=== PATIENT | female | born 1960 | race Hispanic/Latino ===

== ENCOUNTER 2018-03-16 12:21 | Observation (INO) | payer BC ==
[~2018-03-16] VITALS: Ht 162.6 cm; Wt 87.2 kg
[~2018-03-16 12:21] MED LIST: ATORVASTATIN CA10 MG PO; JANUMET 50-5001 EACH PO; LEVAQUIN750 MG PO; LOSARTAN-HCTZ1 EACH PO; OMEGA-31000 MG; PROAIR HFA INH8.5 GM; SYMBICORT 16010.2 GM; VITALETS; [UNRECOGNIZED DRUG - OTHER]
--- OUTSIDE RECORDS SUMMARY | 2018-03-16 12:24 | XMS REPORT ---
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 Allergies, Adverse Reactions, Alerts This patient has no known allergies or adverse reactions. Medications This patient has no known medications. Results Test Description Test Time Test Comments Text Results Atomic Results Result Comments MRI KNEE JNT RT WO CLINICAL INDICATION: S83.91XA Sprain of unspecified site of right knee, initial encounterMODALITY: Avanto 1.5 Sharlene 18 channel MRITECHNIQUE: Multiplanar multisequence MRI of the right knee was performed .IMPRESSION:1. Posterior horn of medial meniscus tear.2. 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 Small joint effusion.4. Trace fluid localizing to the pes anserine bursa.FINDINGS:COMPARISON: none MENISCI: Horizontal oblique tear involves mid posterior horn of medial meniscus. The lateral meniscus appears intact.CRUCIATE LIGAMENTS: Anterior and posterior cruciate ligaments are intact.COLLATERAL LIGAMENTS: Medial and lateral collateral ligaments are intact.OSSEOUS STRUCTURES AND CARTILAGINOUS SURFACES: No fractures or destructive osseous lesions are seen. Grade 2 chondromalacia involves weightbearing surfaces in the medial compartment. Hyaline cartilage in the lateral compartment appears unremarkable.PATELLOFEMORAL COMPARTMENT: Patellofemoral alignment is normal. Small partial thickness chondral fissure involves the lateral patellar facet. Subtle grade 2 chondromalacia involves the mid trochlear groove.MISCELLANEOUS FINDINGS: Small joint effusion is present. Trace fluid is present in the gastrocnemius - semimembranosus bursa. Trace fluid localizes to the pes anserine bursa.
[2018-03-16] MEDS ORDERED: ASPIRIN 81 MG CHEW TAB PO ONE (12:45)
[2018-03-16 13:15] LABS: BASOPHILS % 0.3 % (0.0-1.0); EOSINOPHILS # (AUTO) 0.5 (0.0-0.4); EOSINOPHILS % 5.1 % (0.0-6.0); HEMATOCRIT 44.2 % (34.2-44.1); HEMOGLOBIN 14.8 g/dL (12.0-16.0); LYMPHOCYTES # (AUTO) 2.5 (1.0-3.2); LYMPHOCYTES % 28.2 % (18.0-39.1); MEAN CORPUSCULAR HEMOGLOBIN 27.1 pg (28-32); MEAN CORPUSCULAR HGB CONC 33.5 g/dL (31-35); MEAN CORPUSCULAR VOLUME 80.8 fL (81-99); MONOCYTES # (AUTO) 0.7 (0.2-0.8); MONOCYTES % 7.6 % (4.4-11.3); NEUTROPHILS # (AUTO) 5.2 (2.1-6.9); NEUTROPHILS % 58.5 % (38.7-80.0); PLATELET COUNT 322 x10e3/uL (140-360); RED BLOOD COUNT 5.47 x10e6/uL (3.6-5.1); RED CELL DISTRIBUTION WIDTH 14.7 % (11.7-14.4)
[2018-03-16 13:17] LABS: INR 0.91; PROTHROMBIN TIME 13.1 seconds (11.9-14.5)
[2018-03-16 13:18] LABS: PARTIAL THROMBOPLASTIN TIME 27.8 seconds (23.8-35.5)
[2018-03-16 13:28] LABS: ALANINE AMINOTRANSFERASE 44 IU/L (0-55); ALBUMIN 3.8 g/dL (3.5-5.0); ALBUMIN/GLOBULIN RATIO 1.1 (0.8-2.0); ALKALINE PHOSPHATASE 88 IU/L (40-150); ANION GAP 13.6 mmol/L (8-16); BLOOD UREA NITROGEN 13 mg/dL (7-26); BUN/CREATININE RATIO 17 (6-25); CALCIUM 9.6 mg/dL (8.4-10.2); CARBON DIOXIDE 23 mmol/L (22-29); CHLORIDE 107 mmol/L (98-107); CREATINE KINASE 66 IU/L (29-168); CREATININE, SERUM 0.75 mg/dL (0.57-1.11); EST GLOMERULAR FILTRATION RATE > 60 ML/MIN (60-); GLUCOSE 144 mg/dL (74-118); MAGNESIUM 2.2 MG/DL (1.3-2.1); POTASSIUM 3.6 mmol/L (3.5-5.1); SODIUM 140 mmol/L (136-145)
--- NOTE | 2018-03-16 13:29 | Diagnostic Imaging Report ---
EXAMINATION: CHEST SINGLE (PORTABLE) COMPARISON: None INDICATION: Chest pain DISCUSSION: Frontal view of the chest obtained at 1258 hours. HEART AND MEDIASTINUM: The heart is top normal in size but normal in morphology LINES: None. LUNGS: Lung volumes are mildly diminished, likely due to portable technique. No pneumonia, interstitial thickening, or pulmonary edema. PLEURA: No pleural effusion or pneumothorax. BONES AND SOFT TISSUES: No focal osseous lesion. The soft tissues are normal. IMPRESSION: No acute cardiopulmonary disease. Signed by: Dr. Jaja Aguirre MD on 03/16/2018 1:26 PM
[2018-03-16 13:53] LABS: CLARITY,URINE CLEAR (CLEAR); COLOR,URINE YELLOW (YELLOW); LEUKOCYTE ESTERASE ,URINE NEGATIVE (NEGATIVE); NITRITE,URINE NEGATIVE (NEGATIVE); PROTEIN,URINE DIPSTICK NEGATIVE (NEGATIVE)
[2018-03-16 13:54] LABS: BILIRUBIN,URINE NEGATIVE (NEGATIVE); KETONES,URINE NEGATIVE (NEGATIVE); URINE UROBILINOGEN 0.2 mg/dL (0.2 - 1)
[2018-03-16 13:59] LABS: BACTERIA,URINE FEW /HPF; EPITHELIAL CELLS,URINE RARE /LPF; RBC,URINE 0-5 /HPF (0-5); YEAST,URINE FEW
[2018-03-16] MEDS ORDERED: NITROGLYCERIN 0.4 MG SUBL SL PRN (14:30)
[2018-03-16] MEDS ORDERED: ONDANSETRON HCL INJ 2 MG/ML VIAL IV PRN (14:30)
[2018-03-16] MEDS ORDERED: MORPHINE SULFATE 2 MG/ML SYR IV PRN (14:30)
[2018-03-16] MEDS: FAMOTIDINE 20 MG/2 ML VIAL IV SCH (15:08)
[2018-03-16] MEDS ORDERED: DEXTROSE 50% SYRINGE 50 ML IV PRN (17:00)
[2018-03-16] MEDS ORDERED: JARDIANCE PO (17:12)
[2018-03-16] MEDS ORDERED: SINGULAIR10 MG (17:12)
[2018-03-16 17:45] VITALS: BP 139/67
[2018-03-16 17:57] VITALS: BP 139/67
[2018-03-16 18:05] VITALS: BP 139/67
[2018-03-16 21:33] LABS: CREATINE KINASE 56 IU/L (29-168)
[2018-03-16] MEDS: INSULIN LISPRO 100 UNIT/1 ML 3ML VIAL SQ SCH (21:40)
[2018-03-16 22:13] VITALS: BP 130/63
[2018-03-16 22:14] VITALS: BP 130/63
[2018-03-17] VITALS (9 sets, daily range): BP systolic 118–133; BP diastolic 57–74
[2018-03-17] MEDS: FAMOTIDINE 20 MG/2 ML VIAL IV SCH (03:10)
[2018-03-17 05:55] LABS: BASOPHILS % 0.5 % (0.0-1.0); EOSINOPHILS # (AUTO) 0.6 (0.0-0.4); EOSINOPHILS % 6.4 % (0.0-6.0); HEMATOCRIT 41.4 % (34.2-44.1); HEMOGLOBIN 13.6 g/dL (12.0-16.0); LYMPHOCYTES # (AUTO) 3.2 (1.0-3.2); LYMPHOCYTES % 37.5 % (18.0-39.1); MEAN CORPUSCULAR HEMOGLOBIN 27.1 pg (28-32); MEAN CORPUSCULAR HGB CONC 32.9 g/dL (31-35); MEAN CORPUSCULAR VOLUME 82.6 fL (81-99); MONOCYTES # (AUTO) 0.7 (0.2-0.8); MONOCYTES % 7.9 % (4.4-11.3); NEUTROPHILS # (AUTO) 4.1 (2.1-6.9); NEUTROPHILS % 47.5 % (38.7-80.0); PLATELET COUNT 300 x10e3/uL (140-360); RED BLOOD COUNT 5.01 x10e6/uL (3.6-5.1); RED CELL DISTRIBUTION WIDTH 14.8 % (11.7-14.4)
[2018-03-17 06:04] LABS: ALANINE AMINOTRANSFERASE 37 IU/L (0-55); ALBUMIN 3.4 g/dL (3.5-5.0); ALBUMIN/GLOBULIN RATIO 1.1 (0.8-2.0); ALKALINE PHOSPHATASE 77 IU/L (40-150); ANION GAP 13.7 mmol/L (8-16); BLOOD UREA NITROGEN 15 mg/dL (7-26); BUN/CREATININE RATIO 19 (6-25); CALCIUM 9.3 mg/dL (8.4-10.2); CARBON DIOXIDE 24 mmol/L (22-29); CHLORIDE 105 mmol/L (98-107); CHOL/HDL RATIO 4.6 (3.0-3.6); CHOLESTEROL 133 MD/DL (0-199); CREATININE, SERUM 0.78 mg/dL (0.57-1.11); EST GLOMERULAR FILTRATION RATE > 60 ML/MIN (60-); GLUCOSE 125 mg/dL (74-118); HDL CHOLESTEROL 29 MG/DL (40-60); LDL CHOLESTEROL 73 MG/DL (60-130); POTASSIUM 3.7 mmol/L (3.5-5.1); SODIUM 139 mmol/L (136-145); TRIGLYCERIDES 154 MG/DL (0-149)
[2018-03-17 06:33] LABS: CREATINE KINASE 54 IU/L (29-168)
[2018-03-17] MEDS: INSULIN LISPRO 100 UNIT/1 ML 3ML VIAL SQ SCH ×4 (07:30→20:47)
[2018-03-17] MEDS: ASPIRIN 81 MG ENTERIC COATED PO SCH (09:26)
[2018-03-17] MEDS: METOPROLOL TARTRATE 25 MG TAB PO SCH ×2 (09:26→16:54)
[2018-03-17] MEDS: FAMOTIDINE 20 MG TAB PO SCH ×2 (09:26→16:54)
--- NOTE | 2018-03-17 09:54 | History and Physical ---
PRIMARY CARE PHYSICIAN: Dr. Mann CHIEF COMPLAINT: Chest pain. HISTORY OF PRESENT ILLNESS: This is 57-year-old woman with a history of hypertension and diabetes mellitus type 2, now developing left-sided chest pain, described as tingling, radiating down the left arm. Had associated shortness of breath and dizziness. The last stress test was 3 years ago. No stents were placed at that time during the left heart catheterization. Admitted for further evaluation and management. PAST MEDICAL HISTORY: Hypertension, asthma/COPD, diabetes mellitus type 2, stroke. PAST SURGICAL HISTORY: Hysterectomy. ALLERGIES: PER ELECTRONIC MEDICAL RECORD. FAMILY/SOCIAL HISTORY: Patient is . She has 2 children. No alcohol, illicits, or cigarettes. MEDICATIONS: Per electronic medical record. REVIEW OF SYSTEMS: Denies any vision changes. Denies any headache. Denies any leg pain, back pain, nausea, vomiting, or diarrhea. PHYSICAL EXAMINATION: VITAL SIGNS: Have been reviewed. GENERAL APPEARANCE: Tired-appearing woman resting in bed. HEENT: Anicteric. Pupils respond to light. No oral lesions. CARDIOVASCULAR: Normal S1 and S2. LUNGS: Moderate breath sounds. ABDOMEN: Soft, nontender, nondistended. EXTREMITIES: No edema or calf tenderness. NEUROLOGICAL: Alert and oriented x3. Moving all extremities. SKIN: Dry. PSYCHIATRIC: Normal affect. MUSCULOSKELETAL: Posterior cervical region is mildly tender. In left arm, there is no left arm tenderness on palpation. LABS: Reviewed. MEDICATIONS: Reviewed. ASSESSMENT: A 57-year-old woman. 1. Left-sided chest pain. 2. Left arm paresthesia. 3. Obesity. Body mass index 33.3. 4. Diabetes mellitus type 2. 5. Hyperlipidemia. 6. Hypertension. 7. Acute bronchitis. 8. Congestive heart failure, type unknown. PLAN: 1. Obtain CT scan of the C-spine to evaluate for neurologic for the left arm paresthesia and tingling. 2. Rule out acute coronary syndrome. 3. Follow up lipid panel and hemoglobin A1c. 4. Use beta briana and Pepcid. 5. Prophylaxis with Lovenox and Pepcid. 6. Disposition: Follow up CT scan of the cervical spine. Follow up other labs. Job#: [id number]
--- NOTE | 2018-03-17 10:10 | Diagnostic Imaging Report ---
EXAMINATION: CT of the cervical spine HISTORY: Neck pain since the day before, left upper extremity paresthesias, chest pain. COMPARISON: None available TECHNIQUE: Multidetector helical axial images were obtained without contrast from the foramen magnum to T1. The images were reconstructed using bone and soft tissue algorithms and were viewed in axial, sagittal and coronal planes. Dose modulation, iterative reconstruction, and/or weight based adjustment of the mA/kV was utilized to reduce the radiation dose to as low as reasonably achievable. FINDINGS: Alignment: Normal alignment and lordosis Soft tissues: Normal Vertebrae: Normal height and density. No acute fracture, infection or neoplasm Degenerative changes: C1-C2: Normal C2-C3: Normal C3-C4: Mild facet arthrosis on the right without stenoses C4-C5: Tiny disc osteophyte and uncovertebral processes without significant stenoses C5-C6: Asymmetric to the right disc osteophyte, uncovertebral and facet arthrosis. Moderate right and mild left foraminal stenoses. C6-C7: Normal C7-T1: Normal IMPRESSION: 1. No acute cervical spine abnormalities. 2. Moderate right and mild left degenerative foraminal stenosis at C5-C6. Otherwise no significant degenerative changes, spinal canal or foraminal stenoses. Signed by: Dr. Radha Tavera M.D. on 03/17/2018 10:07 AM
[2018-03-17] MEDS: ENOXAPARIN SOD INJ 40 MG/0.4 ML SYR SC SCH (16:54)
[2018-03-17] MEDS: PRAVASTATIN 20 MG TAB PO SCH (20:44)
[2018-03-18] VITALS (9 sets, daily range): BP systolic 107–132; BP diastolic 56–84
[2018-03-18] MEDS ORDERED: PRAVASTATIN SOD20 MG PO (06:31)
[2018-03-18] MEDS ORDERED: LOPRESSOR25 MG PO (06:31)
[2018-03-18] MEDS ORDERED: ASPIRIN EC81 MG PO (06:31)
[2018-03-18] MEDS: ASPIRIN 81 MG ENTERIC COATED PO SCH (08:25)
[2018-03-18] MEDS: FAMOTIDINE 20 MG TAB PO SCH ×2 (08:25→17:59)
[2018-03-18] MEDS: INSULIN LISPRO 100 UNIT/1 ML 3ML VIAL SQ SCH ×4 (08:25→20:32)
[2018-03-18] MEDS: METOPROLOL TARTRATE 25 MG TAB PO SCH ×2 (08:25→17:59)
[2018-03-18] MEDS: ENOXAPARIN SOD INJ 40 MG/0.4 ML SYR SC SCH (18:00)
[2018-03-18] MEDS: PRAVASTATIN 20 MG TAB PO SCH (20:31)
--- NOTE | 2018-03-18 22:29 | Consultation ---
DATE OF CONSULTATION: March 18, 2018 CARDIOLOGY CONSULTATION REFERRING PHYSICIAN: Dr. Isaiah Powell REASON FOR CONSULTATION: Chest pain. HISTORY OF PRESENT ILLNESS: Ms. Garcia is a pleasant 57-year-old woman with diabetes mellitus type 2, hypertension, dyslipidemia, obesity, and asthma/COPD, who presented to [facility] for complaints of chest discomfort associated with dyspnea and dizziness. Discomfort radiated to left upper extremity and neck, worse with positional changes as well as moving of the left upper extremity. However, has noticed some dyspnea on exertion to moderate activity. Has not had any recent cardiac evaluation. Initial EKG reveals normal sinus rhythm with nonspecific repolarization abnormalities. REVIEW OF SYSTEMS: Twelve-system review negative except for as noted above. ALLERGIES: TO PENICILLIN. PAST MEDICAL HISTORY: As per HPI. SURGICAL HISTORY: Hysterectomy. SOCIAL HISTORY: Denies smoking, alcohol, or drugs. FAMILY HISTORY: Noncontributory. PHYSICAL EXAMINATION: VITAL SIGNS: Temperature 98.9, heart rate 77, respiratory rate 21, blood pressure 130/84, O2 sat 94% on room air. GENERAL: In no acute distress, alert. NECK: No JVD. CHEST: Clear to auscultation. CARDIOVASCULAR: Regular rate and rhythm. Normal S1 and S2. No S3, no S4. No murmurs or rubs. ABDOMEN: Soft, nontender, nondistended. EXTREMITIES: No cyanosis, clubbing, or edema. CARDIOVASCULAR MEDICATIONS: Reviewed, on metoprolol tartrate 12.5 mg b.i.d., aspirin 81 mg daily, mg subcutaneous daily. STUDIES: Reviewed. White blood cells 8.6, hemoglobin 13.6, platelets 300,000. INR 0.9. Glucose 144. Serial cardiac enzymes negative x3. LDL 73, HDL 29, triglycerides 154. A1c 6.9. ASSESSMENT: 1. Atypical chest pain. Differential diagnosis includes unstable angina versus musculoskeletal etiology. 2. Diabetes mellitus. 3. Hypertension. 4. Dyslipidemia. 5. Obesity. 6. Asthma. RECOMMENDATIONS: Discussed with patient extensively given risk factors and atypical presentation with some radiation to upper extremity and associated symptoms, I do feel proceeding with stress test is reasonable and advisable. We have discussed scheduling this, patient in agreement. Will continue current cardiovascular medications. Further recommendations to follow. I thank Dr. Powell for the opportunity to participate in the care of Ms. Garcia. Job#: [id number]
[2018-03-19] VITALS (7 sets, daily range): BP systolic 116–132; BP diastolic 61–79
[2018-03-19] MEDS: FAMOTIDINE 20 MG TAB PO SCH ×2 (07:30→17:34)
[2018-03-19] MEDS: INSULIN LISPRO 100 UNIT/1 ML 3ML VIAL SQ SCH ×4 (07:30→20:47)
[2018-03-19] MEDS: METOPROLOL TARTRATE 25 MG TAB PO SCH ×2 (07:32→17:34)
[2018-03-19] MEDS: ASPIRIN 81 MG ENTERIC COATED PO SCH (07:32)
[2018-03-19] MEDS ORDERED: REGADENOSON 0.4 MG/5 ML SYR IV ONE (08:41)
--- NOTE | 2018-03-19 11:30 | Progress Note ---
DATE: March 19, 2018 CARDIOLOGY PROGRESS NOTE SUBJECTIVE: No chest pain. Today's stress test ongoing this morning, report to follow. OBJECTIVE VITAL SIGNS: Temperature 97.9, heart rate 75, blood pressure 117/67, respiratory rate 19, O2 sat 95%. GENERAL: In no acute distress, alert. NECK: No JVD. CHEST: Clear to auscultation. CARDIOVASCULAR: Regular rate and rhythm. Normal S1 and S2. No S3, no S4. No murmurs or rubs. ABDOMEN: Soft, nontender, and nondistended. EXTREMITIES: No cyanosis, clubbing or edema. CARDIOVASCULAR MEDICATIONS: Metoprolol tartrate 12.5 mg b.i.d., Prilosec 20 mg at bedtime, Lovenox 40 mg subcu daily. LABORATORY STUDIES: Sodium 139, potassium 3.7, creatinine 0.7. Hemoglobin 13.6. INR 0.9. Normal . ASSESSMENT 1. Chest pain, atypical. 2. Obesity with a body mass index of 33. 3. Hypertension. 4. Diabetes mellitus. 5. Dyslipidemia. RECOMMENDATIONS: Continue current cardiovascular medications. Stress test ongoing this morning, report to follow. Preserved left ventricular systolic function. Ordered an echocardiogram. No significant valvular abnormalities noted. If stress is reassuring, we will give her discharge with outpatient follow up in 4 to 6 weeks. Job#: [id number] ALEISHA
[2018-03-19] MEDS: ENOXAPARIN SOD INJ 40 MG/0.4 ML SYR SC SCH (17:34)
[2018-03-19] MEDS: PRAVASTATIN 20 MG TAB PO SCH (20:44)
--- NOTE | 2018-03-19 22:35 | Cardiology Report ---
DATE OF STUDY: March 19, 2018 STRESS TEST INTERPRETING AND SUPERVISING PHYSICIAN: Dr. Gregory Dos Santos, interventional cardiology. PROCEDURE INDICATION: Chest pain. INTERPRETATION: At rest, heart rate was 78, blood pressure 108/75. Resting EKG, normal sinus rhythm with nonspecific repolarization abnormalities. After Lexiscan was administered, heart rate deann to peak of 116 beats per minute, blood pressure increased to 175/76. There were no significant ST changes or arrhythmias throughout stress or recovery. Myocardial perfusion reveals small-sized mild severity apical rest perfusion defect that partially improves on stress images and during systole, and gated images demonstrate preserved left ventricular systolic function, normal regional wall motion, left ventricular ejection fraction of 64%. CONCLUSION: 1. Normal hemodynamic response to Lexiscan stress. 2. Normal electrocardiographic response to Lexiscan stress. 3. Myocardial perfusion demonstrating a small apical attenuation artifact versus less likely nontransmural scar. 4. Preserved left ventricular systolic function with left ventricular ejection fraction of 64%. Job#: [id number]
[2018-03-20 02:49] VITALS: BP 129/62
[2018-03-20] MEDS ORDERED: ZOFRAN ODT4 MG PO (04:05)
[2018-03-20 05:00] VITALS: BP 115/72
[2018-03-20 08:00] VITALS: BP 116/69
[2018-03-20] MEDS: ASPIRIN 81 MG ENTERIC COATED PO SCH (08:14)
[2018-03-20] MEDS: INSULIN LISPRO 100 UNIT/1 ML 3ML VIAL SQ SCH (08:14)
[2018-03-20] MEDS: FAMOTIDINE 20 MG TAB PO SCH (08:14)
[2018-03-20] MEDS: METOPROLOL TARTRATE 25 MG TAB PO SCH (08:15)
[2018-03-20 08:29] VITALS: BP 116/69
--- NOTE | 2018-03-20 11:06 | Progress Note ---
DATE: March 20, 2018 CARDIOLOGY PROGRESS NOTE SUBJECTIVE: No complaints. OBJECTIVE VITAL SIGNS: Temperature 97.1, heart rate 78, respiratory rate is 14, blood pressure 116/69, O2 sat 96% on room air. GENERAL: In no acute distress, alert. NECK: No JVD. CHEST: Clear to auscultation. CARDIOVASCULAR: Regular rate and rhythm. Normal S1 and S2. No S3, no S4. ABDOMEN: Soft, nontender, nondistended. EXTREMITIES: No edema. CARDIOVASCULAR MEDICATIONS: Metoprolol tartrate 12.5 mg b.i.d., aspirin 81 mg daily, Lovenox 40 mg subcu daily. STUDIES: Reviewed. White blood cells 8.6, hemoglobin 13.6, platelets 300. Glucose 144. TELEMETRY: In sinus rhythm. ASSESSMENT 1. Atypical chest pain with reassuring stress test result nearly apical attenuation artifact versus less likely nontransmural scar. 2. Preserved left ventricular systolic function. 3. No significant valvar abnormality on echocardiogram and telemetry with normal sinus rhythm. RECOMMENDATIONS: Recommend optimization of blood pressure, risk factor, and close outpatient followup. Advised patient to followup in 4 weeks post-discharge. Job#: [id number] LOVE
== END 2018-03-20 11:06 | disposition home or self-care (01) ==
LOC: ER 12:21 → ERHOLD 15:05 → IMCU 17:40
PROVIDERS: ADMIT Internal Medicine; ATTEND Internal Medicine
DX: R07.89 Other chest pain (principal); R94.31 Abnormal electrocardiogram [ECG] [EKG]; I10 Essential (primary) hypertension; E11.9 Type 2 diabetes mellitus without complications; E78.5 Hyperlipidemia, unspecified; D64.9 Anemia, unspecified; Z87.891 Personal history of nicotine dependence; Z83.3 Family history of diabetes mellitus; Z82.49 Family history of ischemic heart disease and other diseases of the circulatory system; E83.41 Hypermagnesemia; E66.9 Obesity, unspecified; Z68.33 Body mass index [BMI] 33.0-33.9, adult; I50.9 Heart failure, unspecified; J20.9 Acute bronchitis, unspecified; R20.2 Paresthesia of skin; Z88.0 Allergy status to penicillin
CPT/HCPCS: 36415 ×5; 71045; 72125; 78452; 80053 ×2; 80061; 81001; 82550 ×2; 82553 ×2; 82948 ×5; 83036; 83735; 84484 ×2; 85025 ×2; 85610; 85730; 93005; 93017; 93306; 96372 ×2; 99284; A9502; G0378 ×5; J1650 ×3; J2405; J2785

== ENCOUNTER 2018-04-30 16:11 | Emergency (ER) | payer BC ==
[~2018-04-30] VITALS: Ht 162.6 cm; Wt 83.5 kg
[~2018-04-30 16:11] MED LIST changes: +ASPIRIN EC81 MG PO; +JARDIANCE PO; +LOPRESSOR25 MG PO; +PRAVASTATIN SOD20 MG PO; +SINGULAIR10 MG; +ZOFRAN ODT4 MG PO
[2018-04-30] MEDS ORDERED: ONDANSETRON HCL INJ 2 MG/ML VIAL IV STA (16:40)
[2018-04-30] MEDS ORDERED: MORPHINE SULFATE 2 MG/ML SYR IV STA (16:40)
[2018-04-30] MEDS ORDERED: SODIUM CHLORIDE 0.9% 1000ML 1,000 ML IV SCH (16:45)
[2018-04-30] MEDS ORDERED: MORPHINE SULFATE INJ 4 MG/ML INJ IV PRN (17:00)
[2018-04-30 17:12] LABS: BASOPHILS % 0.3 % (0.0-1.0); EOSINOPHILS # (AUTO) 0.1 (0.0-0.4); HEMATOCRIT 45.2 % (34.2-44.1); HEMOGLOBIN 14.8 g/dL (12.0-16.0); LYMPHOCYTES # (AUTO) 1.5 (1.0-3.2); MEAN CORPUSCULAR HEMOGLOBIN 26.6 pg (28-32); MEAN CORPUSCULAR HGB CONC 32.7 g/dL (31-35); MEAN CORPUSCULAR VOLUME 81.1 fL (81-99); MONOCYTES # (AUTO) 0.5 (0.2-0.8); NEUTROPHILS # (AUTO) 6.7 (2.1-6.9); NEUTROPHILS % 74.9 % (38.7-80.0); PLATELET COUNT 342 x10e3/uL (140-360); RED BLOOD COUNT 5.57 x10e6/uL (3.6-5.1); RED CELL DISTRIBUTION WIDTH 14.7 % (11.7-14.4)
[2018-04-30 17:52] LABS: CLARITY,URINE CLEAR (CLEAR); COLOR,URINE YELLOW (YELLOW); LEUKOCYTE ESTERASE ,URINE NEGATIVE (NEGATIVE); NITRITE,URINE NEGATIVE (NEGATIVE); PROTEIN,URINE DIPSTICK NEGATIVE (NEGATIVE)
[2018-04-30 17:53] LABS: BILIRUBIN,URINE NEGATIVE (NEGATIVE); KETONES,URINE 1+ (NEGATIVE); URINE UROBILINOGEN 0.2 mg/dL (0.2 - 1)
[2018-04-30 17:57] LABS: WBC,URINE (MAN) 0-5 /HPF (0-5)
[2018-04-30 17:58] LABS: BACTERIA,URINE MODERATE /HPF; EPITHELIAL CELLS,URINE MODERATE /LPF
--- NOTE | 2018-04-30 18:30 | Diagnostic Imaging Report ---
EXAM: Right Upper Quadrant Ultrasound INDICATION: ^allyssa COMPARISON: CT abdomen and pelvis 11/14/2015 TECHNIQUE: Transverse and longitudinal images of the right upper abdomen were obtained. FINDINGS: Liver: Size: 15.8 cm in the right midclavicular line, normal Appearance: Mildly increased echogenicity, smooth contour Mass: No focal masses Gallbladder: Stones/Sludge: None Wall: 0.1 cm Appearance: No wall thickening, pericholecystic fluid or hydrops. Sonographic Hernandez's Sign: Negative Bile Ducts: Intrahepatic Ducts: No dilatation Extrahepatic Ducts: Common bile duct measures 0.4 cm, no dilatation Pancreas: Visualized portions of the pancreatic head, neck and proximal body are normal. Kidneys: Length: Right 11.4 cm Echogenicity: Normal Collecting System: No hydronephrosis Stone: None Cyst/Mass: None Vessels: Aorta: Visualized portions are normal Inferior Vena Cava: Visualized portions are normal Main Portal Vein: 1.0 cm, normal size with hepatopetal flow. Free Fluid: No ascites or pleural effusion IMPRESSION: Mildly increased hepatic echogenicity may relate to hepatic steatosis. Otherwise, normal right upper quadrant ultrasound. Specifically, no visualized stones or sludge. Signed by: Dr. Mee Sanders M.D. on 04/30/2018 6:26 PM
[2018-04-30 19:50] LABS: ALANINE AMINOTRANSFERASE 34 IU/L (0-55); ALBUMIN 3.9 g/dL (3.5-5.0); ALBUMIN/GLOBULIN RATIO 1.1 (0.8-2.0); ALKALINE PHOSPHATASE 93 IU/L (40-150); ANION GAP 13.8 mmol/L (8-16); BLOOD UREA NITROGEN 12 mg/dL (7-26); BUN/CREATININE RATIO 17 (6-25); CALCIUM 9.5 mg/dL (8.4-10.2); CARBON DIOXIDE 24 mmol/L (22-29); CHLORIDE 103 mmol/L (98-107); CREATININE, SERUM 0.71 mg/dL (0.57-1.11); EST GLOMERULAR FILTRATION RATE > 60 ML/MIN (60-); GLUCOSE 132 mg/dL (74-118); POTASSIUM 3.8 mmol/L (3.5-5.1); SODIUM 137 mmol/L (136-145)
[2018-04-30 19:51] LABS: MAGNESIUM 2.1 MG/DL (1.3-2.1)
[2018-04-30] MEDS ORDERED: ONDANSETRON HCL INJ 2 MG/ML VIAL ONE (20:09)
--- NOTE | 2018-04-30 20:14 | Diagnostic Imaging Report ---
EXAM: CT Abdomen and Pelvis WITHOUT contrast INDICATION: ^Right flank/upper abd. Stone protocol ^[id number] ^1920 COMPARISON: Gallbladder ultrasound 04/30/2018 TECHNIQUE: Abdomen and pelvis were scanned utilizing a multidetector helical scanner from the lung base to the pubic symphysis without administration of IV contrast. Absence of intravenous contrast decreases sensitivity for detection of focal lesions and vascular pathology. Coronal and sagittal reformations were obtained. Routine protocol was performed. IV CONTRAST: None. ORAL CONTRAST: Water RADIATION DOSE: Total DLP: 556.7 mGy*cm Estimated effective dose: (DLP x 0.015 x size factor) mSv COMPLICATIONS: None FINDINGS: LINES and TUBES: None. LOWER THORAX: Mild scarring in the left lower lobe. HEPATOBILIARY: Hepatic steatosis. No focal hepatic lesions. No biliary ductal dilation. GALLBLADDER: No radio-opaque stones or sludge. No wall thickening. SPLEEN: No splenomegaly. PANCREAS: No focal masses or ductal dilatation. ADRENALS: No adrenal nodules KIDNEYS/URETERS: No hydronephrosis. No cystic or solid mass lesions. No stones. GI TRACT: No abnormal distention, wall thickening, or evidence of bowel obstruction. Appendix is normal. PELVIC ORGANS/BLADDER: Unremarkable. LYMPH NODES: No lymphadenopathy. VESSELS: Unremarkable. PERITONEUM / RETROPERITONEUM: No free air or fluid. BONES: Unremarkable. SOFT TISSUES: Unremarkable. IMPRESSION: 1. Hepatic steatosis. 2. No calcified nephro or ureterolithiasis. Signed by: Dr. Mee Sanders M.D. on 04/30/2018 8:11 PM
== END 2018-04-30 21:10 | disposition home or self-care (01) ==
LOC: ER 16:11
DX: R10.11 Right upper quadrant pain (principal); R11.2 Nausea with vomiting, unspecified; R31.29 Other microscopic hematuria; E11.9 Type 2 diabetes mellitus without complications; I10 Essential (primary) hypertension; E78.5 Hyperlipidemia, unspecified; J45.909 Unspecified asthma, uncomplicated; J44.9 Chronic obstructive pulmonary disease, unspecified; Z85.42 Personal history of malignant neoplasm of other parts of uterus
CPT/HCPCS: 36415; 74176; 76705; 80053; 81001; 82150; 83690; 83735; 85025; 93005; 99284; J2405; J7030

== ENCOUNTER 2021-09-01 14:25 | Emergency (ER) | payer BC ==
[~2021-09-01] VITALS: Ht 162.6 cm; Wt 83.5 kg
== END 2021-09-01 15:00 | disposition home or self-care (01) ==
LOC: ER 14:28
DX: R53.83 Other fatigue (principal); I10 Essential (primary) hypertension; E11.9 Type 2 diabetes mellitus without complications; E78.5 Hyperlipidemia, unspecified; J44.9 Chronic obstructive pulmonary disease, unspecified; J45.909 Unspecified asthma, uncomplicated; E78.00 Pure hypercholesterolemia, unspecified; F32.A Depression, unspecified
CPT/HCPCS: 99282

== ENCOUNTER 2024-12-07 14:47 | Emergency (ER) | payer BC ==
[~2024-12-07] VITALS: Ht 162.6 cm; Wt 83.5 kg
[2024-12-07 15:35] VITALS: PULSE 94; RESP 16; TEMP 99.1
[2024-12-07] MEDS: KETOROLAC TROMETHAMINE 30 MG/ML VIAL IM STA (16:19)
[2024-12-07] MEDS: ACETAMINOPHEN 325 MG TAB PO ONE (16:20)
[2024-12-07 19:50] VITALS: BP 110/65; PULSE 78; RESP 16; TEMP 98.4; O2SAT 100
== END 2024-12-07 19:52 | disposition home or self-care (01) ==
LOC: ER 18:02
DX: S00.83XA Contusion of other part of head, initial encounter (principal); S40.012A Contusion of left shoulder, initial encounter; S60.222A Contusion of left hand, initial encounter; S60.212A Contusion of left wrist, initial encounter; W18.2XXA Fall in (into) shower or empty bathtub, initial encounter; Y93.E1 Activity, personal bathing and showering; Y92.89 Other specified places as the place of occurrence of the external cause; I10 Essential (primary) hypertension; E11.9 Type 2 diabetes mellitus without complications; J44.9 Chronic obstructive pulmonary disease, unspecified; E78.5 Hyperlipidemia, unspecified; F32.A Depression, unspecified
CPT/HCPCS: 70450; 72125; 73030; 73100; 73130; 99283; J1885